=== PATIENT | male | born 1985 | race Caucasian/White ===

== ENCOUNTER 2016-09-18 18:20 | Emergency (ER) | payer OTHER, MEDICAID ==
[2016-09-18] MEDS ORDERED: MORPHINE 4 MG/ML SYR ONE (20:47)
[2016-09-18] MEDS ORDERED: ONDANSETRON ODT 4 MG TAB ONE (20:48)
== END 2016-09-18 21:22 | disposition home or self-care (01) ==
LOC: ER 18:20
CPT/HCPCS: 70450; 72072; 72125; 96372

== ENCOUNTER 2016-10-08 19:22 | Emergency (ER) | payer MEDICAID ==
[2016-10-08] MEDS ORDERED: OPTIRAY 350 100 ML VIAL HMH IV ONE (19:23)
[2016-10-08] MEDS ORDERED: ONDANSETRON 4 MG VIAL ONE (21:33)
[2016-10-08] MEDS ORDERED: SODIUM CHLORIDE 0.9% 2,000 ML ONE (21:33)
[2016-10-08] MEDS ORDERED: CEFTRIAXONE 1 GM VIAL ONE (22:43)
== END 2016-10-09 01:07 | disposition home or self-care (01) ==
LOC: ER 19:22
DX: R10.84 Generalized abdominal pain (principal); R11.2 Nausea with vomiting, unspecified; J15.9 Unspecified bacterial pneumonia; Z87.891 Personal history of nicotine dependence
CPT/HCPCS: 36415; 71020; 74177; 80053; 83690; 85025; 96361; 96365; 96366; 96375